=== PATIENT | male | born 1945 | race Caucasian/White ===

== ENCOUNTER 2017-11-01 22:42 | Emergency (ER) | payer MEDICARE ==
[~2017-11-01] VITALS: Ht 160 cm; Wt 70.0 kg
[2017-11-01] MEDS ORDERED: FAMOTIDINE 20MG TABLET PO ONE (23:45)
[2017-11-01] MEDS ORDERED: NITROGLYCERIN 0.4MG TABLET SL SL ONE (23:45)
[2017-11-01] MEDS ORDERED: ASPIRIN 325MG TABLET PO ONE (23:45)
[2017-11-02 00:16] LABS: BASOPHILS % 0.5 % (0.0-2.0); EOSINOPHILS % 0.1 % (0.0-5.0); HEMOGLOBIN. 14.9 g/dL (14.0-18.0); LYMPHOCYTES % 31.5 % (20.0-50.0); MEAN CORPUSCULAR HEMOGLOBIN 32.8 pg (28.0-32.0); MEAN CORPUSCULAR VOLUME 92.5 fL (80.0-94.0); MEAN PLATELET VOLUME 7.2 fl (7.4-10.4); MONOCYTES % 8.8 % (2.0-8.0); NEUTROPHILS % 59.1 % (40.0-76.0); PLATELET 236 x1000/uL (130-400); RED BLOOD CELL COUNT 4.54 mill/uL (4.7-6.1); RED CELL DISTRIBUTION WIDTH 13.3 % (11.6-14.6)
[2017-11-02 00:25] LABS: PROTHROMBIN TIME 10.5 sec (9.4-11.6)
[2017-11-02 00:28] LABS: CHLORIDE 98 mEq/L (98-107)
[2017-11-02] MEDS ORDERED: FAMOTIDINE 20MG TABLET PO NR (02:00)
[2017-11-02] MEDS ORDERED: ONDANSETRON HCL 4MG/2ML VIAL IV ONE (03:45)
[2017-11-02 04:53] VITALS: BP 141/82
== END 2017-11-02 05:47 | disposition home or self-care (01) ==
LOC: ER 22:42
DX: F10.129 Alcohol abuse with intoxication, unspecified (principal); R06.02 Shortness of breath; J45.909 Unspecified asthma, uncomplicated; F32.9 Major depressive disorder, single episode, unspecified; Z79.82 Long term (current) use of aspirin
CPT/HCPCS: 36415; 71045; 80053; 83880; 84484; 85025; 85610; 93005; 96374; 99285; G0482; J2405

== ENCOUNTER 2018-02-13 14:20 | Emergency (ER) | payer MEDICARE ==
[~2018-02-13] VITALS: Ht 157.5 cm; Wt 67.0 kg
[2018-02-13] MEDS ORDERED: SODIUM CHLORIDE 0.9% 1,000 ML IV ONE (15:22)
[2018-02-13 15:39] LABS: CHLORIDE 108 mEq/L (98-107)
[2018-02-13 15:40] LABS: BASOPHILS % 0.6 % (0.0-2.0); EOSINOPHILS % 2.2 % (0.0-5.0); HEMATOCRIT. 38.3 % (42.0-52.0); HEMOGLOBIN. 13.1 g/dL (14.0-18.0); LYMPHOCYTES % 38.2 % (20.0-50.0); MEAN CORPUSCULAR HEMOGLOBIN 33.2 pg (28.0-32.0); MEAN CORPUSCULAR VOLUME 97.1 fL (80.0-94.0); MONOCYTES % 11.3 % (2.0-8.0); NEUTROPHILS % 47.7 % (40.0-76.0); PLATELET 170 x1000/uL (130-400); PROTHROMBIN TIME 10.4 sec (9.4-11.6); RED BLOOD CELL COUNT 3.95 mill/uL (4.7-6.1); RED CELL DISTRIBUTION WIDTH 13.3 % (11.6-14.6)
[2018-02-13 15:42] LABS: CLARITY URINE CLEAR (CLEAR); COLOR URINE DARK YELLOW (YELLOW); KETONES URINE TRACE (NEGATIVE); LEUKOCYTE ESTERASE URINE NEGATIVE (NEGATIVE); NITRITE URINE NEGATIVE (NEGATIVE); OCCULT BLOOD URINE TRACE (NEGATIVE); PH URINE 5.5 (4.5-8.0); PROTEIN URINE NEGATIVE (NEGATIVE); SPECIFIC GRAVITY URINE 1.025 (1.005-1.030)
[2018-02-13 17:55] VITALS: BP 120/89
== END 2018-02-13 18:59 | disposition home or self-care (01) ==
LOC: ER 14:55
DX: R42 Dizziness and giddiness (principal); E03.9 Hypothyroidism, unspecified; J45.909 Unspecified asthma, uncomplicated; I10 Essential (primary) hypertension
CPT/HCPCS: 36415; 71045; 80053; 81003; 84443; 85025; 85610; 93005; 96360; 96361; 99285; J7030

== ENCOUNTER 2020-04-08 15:56 | Inpatient (IN) | payer MEDICARE ==
[~2020-04-08] VITALS: Ht 160 cm; Wt 67.6 kg
[2020-04-08 18:55] LABS: BASOPHILS % 0.5 % (0.0-2.0); EOSINOPHILS % 0.4 % (0.0-5.0); HEMATOCRIT. 42.1 % (42.0-52.0); HEMOGLOBIN. 14.6 g/dL (14.0-18.0); LYMPHOCYTES % 29.6 % (20.0-50.0); MEAN CORPUSCULAR HEMOGLOBIN 32.4 pg (28.0-32.0); MEAN CORPUSCULAR VOLUME 93.5 fL (80.0-94.0); MEAN PLATELET VOLUME 8.1 fl (7.4-10.4); MONOCYTES % 8.2 % (2.0-8.0); NEUTROPHILS % 61.3 % (40.0-76.0); PLATELET 159 x1000/uL (130-400); RED BLOOD CELL COUNT 4.51 mill/uL (4.7-6.1); RED CELL DISTRIBUTION WIDTH 13.4 % (11.6-14.6)
[2020-04-08] MEDS ORDERED: ONDANSETRON HCL 4MG/2ML INJ IV ONE (19:00)
[2020-04-08] MEDS ORDERED: PANTOPRAZOLE SODIUM 40 MG/VIAL IV ONE (19:00)
[2020-04-08] MEDS ORDERED: SODIUM CHLORIDE 0.9% 1,000 ML IV ONE (19:00)
[2020-04-08 19:02] LABS: CHLORIDE 101 mEq/L (98-107)
[2020-04-08 19:06] LABS: ETHANOL BLOOD 78 mg/dL
[2020-04-08 19:11] LABS: CREATINE KINASE 411 IU/L (39-308)
[2020-04-09] VITALS (7 sets, daily range): BP systolic 117–164; BP diastolic 57–89
[2020-04-09] MEDS ORDERED: MORPHINE SULFATE 2 MG/ML CPJ (NOT FOR IM USE) IV PRN (01:00)
[2020-04-09] MEDS ORDERED: PROSOL IH (03:15)
[2020-04-09] MEDS ORDERED: BISM262T15 PO (03:15)
[2020-04-09] MEDS ORDERED: CLONIDINE 0.1MG TABLET PO PRN (04:30)
[2020-04-09] MEDS ORDERED: DIPHENHYDRAMINE 50MG/ML VIAL IM PRN (04:30)
[2020-04-09] MEDS: FOLIC ACID 1 MG, THIAMINE HCL 100 MG, MVI, ADULT NO.1 10 ML in DEXTROSE 5% WATER 1,000 ML IV SCH ×4 (04:40)
[2020-04-09] MEDS: CHLORDIAZEPOXIDE 25MG CAPSULE PO SCH ×3 (05:04→20:58)
[2020-04-09] MEDS: IPRATROPIUM/ALBUTEROL 0.5-3(2.5)MG/3ML NEB HHN SCH ×4 (08:51→21:23)
[2020-04-09] MEDS: METOPROLOL TARTRATE 25MG TABLET PO SCH ×2 (08:54→20:58)
[2020-04-09 08:59] LABS: CHLORIDE 104 mEq/L (98-107)
[2020-04-09] MEDS ORDERED: POTASSIUM CHLORIDE 20MEQ TABLET SR PO NR (09:45)
[2020-04-09 10:31] LABS: BASOPHILS % 0.7 % (0.0-2.0); HEMATOCRIT. 37.4 % (42.0-52.0); HEMOGLOBIN. 12.8 g/dL (14.0-18.0); LYMPHOCYTES % 25.8 % (20.0-50.0); MEAN CORPUSCULAR HEMOGLOBIN 32.3 pg (28.0-32.0); MEAN CORPUSCULAR VOLUME 93.9 fL (80.0-94.0); MEAN PLATELET VOLUME 8.9 fl (7.4-10.4); MONOCYTES % 7.8 % (2.0-8.0); NEUTROPHILS % 63.7 % (40.0-76.0); PLATELET 107 x1000/uL (130-400); RED BLOOD CELL COUNT 3.98 mill/uL (4.7-6.1); RED CELL DISTRIBUTION WIDTH 13.4 % (11.6-14.6)
[2020-04-09 10:32] LABS: T4 FREE 0.9 ng/dL (0.76-1.46)
[2020-04-09] MEDS: OMEPRAZOLE 20MG CAPSULE EXTENDED RELEASE PO SCH (10:47)
[2020-04-09] MEDS ORDERED: PNEUMOCOCCAL 23-VAL P-SAC VAC 0.5 ML IM ONE (12:00)
[2020-04-09] MEDS: LORAZEPAM 1MG TABLET PO PRN (21:52)
[2020-04-10] VITALS: BP 104/63
[2020-04-10] MEDS: IPRATROPIUM/ALBUTEROL 0.5-3(2.5)MG/3ML NEB HHN SCH ×4 (01:17→12:21)
[2020-04-10 05:00] VITALS: BP 122/73
[2020-04-10] MEDS: OMEPRAZOLE 20MG CAPSULE EXTENDED RELEASE PO SCH (05:45)
[2020-04-10] MEDS: CHLORDIAZEPOXIDE 25MG CAPSULE PO SCH ×2 (05:45→14:28)
[2020-04-10] MEDS ORDERED: LEVOTHYROXINE SODIUM 50MCG TABLET PO SCH (06:45)
[2020-04-10 06:49] LABS: BASOPHILS % 0.5 % (0.0-2.0); EOSINOPHILS % 1.9 % (0.0-5.0); HEMATOCRIT. 37.8 % (42.0-52.0); HEMOGLOBIN. 12.9 g/dL (14.0-18.0); LYMPHOCYTES % 27.3 % (20.0-50.0); MEAN CORPUSCULAR HEMOGLOBIN 32.9 pg (28.0-32.0); MEAN PLATELET VOLUME 8.9 fl (7.4-10.4); MONOCYTES % 6.3 % (2.0-8.0); PLATELET 92 x1000/uL (130-400); RED BLOOD CELL COUNT 3.93 mill/uL (4.7-6.1); RED CELL DISTRIBUTION WIDTH 13.7 % (11.6-14.6)
[2020-04-10 07:02] LABS: CHLORIDE 102 mEq/L (98-107)
[2020-04-10] MEDS: METOPROLOL TARTRATE 25MG TABLET PO SCH (09:13)
[2020-04-10] MEDS: FOLIC ACID 1 MG, THIAMINE HCL 100 MG, MVI, ADULT NO.1 10 ML in DEXTROSE 5% WATER 1,000 ML IV SCH ×4 (09:59)
[2020-04-10] MEDS ORDERED: POTASSIUM CHLORIDE 20MEQ TABLET SR PO NR ×2 (11:15→13:24)
[2020-04-10 12:00] VITALS: BP 128/68
[2020-04-10] MEDS ORDERED: LEVO50TA8 PO (12:56)
[2020-04-10] MEDS ORDERED: MULT-1116 MT (12:57)
[2020-04-10] MEDS ORDERED: FOLI-43 MT (12:57)
[2020-04-10] MEDS ORDERED: THIA50TA11 MT (12:57)
[2020-04-10] MEDS ORDERED: MAGNESIUM OXIDE 400MG TABLET PO SCH (13:24)
[2020-04-10] MEDS: LORAZEPAM 1MG TABLET PO PRN (13:45)
[2020-04-10 15:34] VITALS: BP 112/75
== END 2020-04-10 16:30 | disposition home or self-care (01) | DRG 392 ==
LOC: ER 15:56 → 5WST 22:03 → EDBEDREQ 22:14 → EDBEDREQTM 22:14 → ENRESERV 22:19
PROVIDERS: ADMIT Internal Medicine; ATTEND Internal Medicine
DX: K29.20 Alcoholic gastritis without bleeding (principal); E87.2 Acidosis; E03.9 Hypothyroidism, unspecified; K76.0 Fatty (change of) liver, not elsewhere classified; J45.909 Unspecified asthma, uncomplicated; I10 Essential (primary) hypertension; E87.6 Hypokalemia; K80.20 Calculus of gallbladder without cholecystitis without obstruction; F10.229 Alcohol dependence with intoxication, unspecified; I27.20 Pulmonary hypertension, unspecified; Y90.3 Blood alcohol level of 60-79 mg/100 ml; E05.90 Thyrotoxicosis, unspecified without thyrotoxic crisis or storm; Z71.41 Alcohol abuse counseling and surveillance of alcoholic; R74.0 Nonspecific elevation of levels of transaminase and lactic acid dehydrogenase [LDH]
CPT/HCPCS: 36415; 71045; 76705; 80048; 80053; 80061; 80307; 80320; 80329; 82140; 82550; 83036; 83605; 83735; 83880; 84439; 84443; 84484; 85025; 90732; 93005; 93306; 94640; 96374; 99285; C9113; J1200; J2405; J3411; J3490; J7030; J7070; G0480

== ENCOUNTER 2020-09-19 15:39 | Inpatient (IN) | payer MEDICARE ==
[~2020-09-19] VITALS: Ht 160 cm; Wt 61.2 kg
[~2020-09-19 15:39] MED LIST: BISM262T15 PO; FOLI-43 MT; LEVO50TA8 PO; MULT-1116 MT; PROSOL IH; THIA50TA12 MT
[2020-09-19] MEDS ORDERED: NITROGLYCERIN 0.4MG TABLET SL SL PRN (16:45)
[2020-09-19] MEDS ORDERED: ASPIRIN 81MG TABLET PO ONE (16:45)
[2020-09-19 16:52] LABS: EOSINOPHILS % 1.3 % (0.0-5.0); HEMATOCRIT. 36.4 % (42.0-52.0); LYMPHOCYTES % 36.5 % (20.0-50.0); MEAN CORPUSCULAR HEMOGLOBIN 29.6 pg (28.0-32.0); MEAN CORPUSCULAR VOLUME 89.4 fL (80.0-94.0); MEAN PLATELET VOLUME 7.2 fl (7.4-10.4); NEUTROPHILS % 51.2 % (40.0-76.0); PLATELET 354 x1000/uL (130-400); RED BLOOD CELL COUNT 4.07 mill/uL (4.7-6.1)
[2020-09-19 16:58] LABS: CHLORIDE 105 mEq/L (98-107)
[2020-09-19 17:03] LABS: D-DIMER 0.76 mg/L FEU (<0.50); PARTIAL THROMBOPLASTIN TIME 25.5 sec (23.4-31.0); PROTHROMBIN TIME 10.3 sec (9.6-11.0)
[2020-09-19] MEDS ORDERED: IOHEXOL 350 MG/ML 200ML INFUS..BTL IV ONE (20:02)
[2020-09-19 22:54] VITALS: BP 131/78
[2020-09-19] MEDS ORDERED: CLONIDINE 0.1MG TABLET PO PRN (23:30)
[2020-09-20] VITALS: BP 131/78
[2020-09-20] MEDS: ONDANSETRON HCL 4MG/2ML INJ IV PRN ×2 (00:05→18:06)
[2020-09-20] MEDS: HYDROCODONE/ACETAMINOPHEN 5/325MG TABLET PO PRN ×3 (00:05→18:02)
[2020-09-20] MEDS: ZOLPIDEM TARTRATE 5MG TABLET PO PRN (01:31)
[2020-09-20 04:00] VITALS: BP 107/58
[2020-09-20] MEDS: NITROGLYCERIN OINT 1GM/INCH UDPKT TD SCH ×3 (05:19→21:27)
[2020-09-20 06:58] LABS: CHLORIDE 106 mEq/L (98-107)
[2020-09-20 07:08] LABS: LDL CHOLESTEROL 68 mg/dL (5-100)
[2020-09-20 07:09] LABS: BASOPHILS % 1.2 % (0.0-2.0); EOSINOPHILS % 4.1 % (0.0-5.0); HEMATOCRIT. 34.8 % (42.0-52.0); HEMOGLOBIN. 11.4 g/dL (14.0-18.0); MEAN CORPUSCULAR HEMOGLOBIN 29.4 pg (28.0-32.0); MEAN CORPUSCULAR VOLUME 89.5 fL (80.0-94.0); MEAN PLATELET VOLUME 7.2 fl (7.4-10.4); NEUTROPHILS % 44.7 % (40.0-76.0); PLATELET 308 x1000/uL (130-400); RED BLOOD CELL COUNT 3.89 mill/uL (4.7-6.1); RED CELL DISTRIBUTION WIDTH 16.7 % (11.6-14.6)
[2020-09-20 07:12] LABS: HDL CHOLESTEROL 59 mg/dL (40-59)
[2020-09-20 08:00] VITALS: BP 131/80
[2020-09-20] MEDS: ENOXAPARIN 40MG/0.4ML SYR SUBCUT SCH (08:14)
[2020-09-20] MEDS: ASPIRIN 81MG TABLET PO SCH (08:17)
[2020-09-20] MEDS: METOPROLOL TARTRATE 50MG TABLET PO SCH ×2 (08:17→21:26)
[2020-09-20 12:00] VITALS: BP 106/64
[2020-09-20 20:00] VITALS: BP 122/67
[2020-09-20] MEDS: ACETAMINOPHEN 325MG TABLET PO PRN (21:27)
[2020-09-21] VITALS: BP 111/61
[2020-09-21] MEDS: ZOLPIDEM TARTRATE 5MG TABLET PO PRN ×2 (00:32→22:06)
[2020-09-21 04:00] VITALS: BP 116/58
[2020-09-21] MEDS: NITROGLYCERIN OINT 1GM/INCH UDPKT TD SCH ×3 (05:35→22:06)
[2020-09-21] MEDS: LEVOTHYROXINE SODIUM 50MCG TABLET PO SCH (05:44)
[2020-09-21 08:00] VITALS: BP 123/68
[2020-09-21] MEDS: ASPIRIN 81MG TABLET PO SCH (09:09)
[2020-09-21] MEDS: METOPROLOL TARTRATE 50MG TABLET PO SCH ×2 (09:10→20:32)
[2020-09-21] MEDS: ENOXAPARIN 40MG/0.4ML SYR SUBCUT SCH (09:11)
[2020-09-21 09:13] LABS: CHLORIDE 106 mEq/L (98-107)
[2020-09-21 09:18] LABS: GAMMA GLUTAMYL TRANSPEPTIDASE 82 IU/L (11-50)
[2020-09-21 09:21] LABS: TOTAL IRON BINDING CAPACITY 324 ug/dL (250-450)
[2020-09-21 09:49] LABS: BASOPHILS % 1.1 % (0.0-2.0); EOSINOPHILS % 3.3 % (0.0-5.0); HEMATOCRIT. 34.6 % (42.0-52.0); HEMOGLOBIN. 11.4 g/dL (14.0-18.0); MEAN CORPUSCULAR HEMOGLOBIN 29.4 pg (28.0-32.0); MEAN CORPUSCULAR VOLUME 89.3 fL (80.0-94.0); MEAN PLATELET VOLUME 7.3 fl (7.4-10.4); MONOCYTES % 9.2 % (2.0-8.0); NEUTROPHILS % 58.4 % (40.0-76.0); PLATELET 362 x1000/uL (130-400); RED BLOOD CELL COUNT 3.88 mill/uL (4.7-6.1); RED CELL DISTRIBUTION WIDTH 16.7 % (11.6-14.6)
[2020-09-21 09:50] LABS: FOLIC ACID (FOLATE) SERUM 8.7 ng/mL (>5.38)
[2020-09-21 12:00] VITALS: BP 127/50
[2020-09-21] MEDS: ASCORBIC ACID 500 MG TABLET PO SCH (12:38)
[2020-09-21] MEDS: HYDROCODONE/ACETAMINOPHEN 5/325MG TABLET PO PRN ×2 (14:15→18:46)
[2020-09-21 16:00] VITALS: BP 117/67
[2020-09-21] MEDS: FERROUS SULFATE 325MG TABLET PO SCH (17:27)
[2020-09-21 20:00] VITALS: BP 111/62
[2020-09-21] MEDS: ACETAMINOPHEN 325MG TABLET PO PRN (22:06)
[2020-09-22] VITALS: BP 117/63
[2020-09-22 04:00] VITALS: BP 120/71
[2020-09-22] MEDS: NITROGLYCERIN OINT 1GM/INCH UDPKT TD SCH ×3 (05:43→21:08)
[2020-09-22] MEDS: LEVOTHYROXINE SODIUM 50MCG TABLET PO SCH (06:45)
[2020-09-22] MEDS: FERROUS SULFATE 325MG TABLET PO SCH ×2 (06:49→17:25)
[2020-09-22 07:08] LABS: PROTHROMBIN TIME 10.3 sec (9.6-11.0)
[2020-09-22 07:24] LABS: CHLORIDE 107 mEq/L (98-107)
[2020-09-22 07:33] LABS: BASOPHILS % 1.2 % (0.0-2.0); HEMATOCRIT. 36.2 % (42.0-52.0); HEMOGLOBIN. 12.1 g/dL (14.0-18.0); LYMPHOCYTES % 34.3 % (20.0-50.0); MEAN CORPUSCULAR HEMOGLOBIN 29.6 pg (28.0-32.0); MEAN CORPUSCULAR VOLUME 88.8 fL (80.0-94.0); MEAN PLATELET VOLUME 7.2 fl (7.4-10.4); MONOCYTES % 8.3 % (2.0-8.0); NEUTROPHILS % 52.2 % (40.0-76.0); PLATELET 418 x1000/uL (130-400); RED BLOOD CELL COUNT 4.08 mill/uL (4.7-6.1); RED CELL DISTRIBUTION WIDTH 16.5 % (11.6-14.6)
[2020-09-22 08:01] VITALS: BP 136/90
[2020-09-22] MEDS: ASCORBIC ACID 500 MG TABLET PO SCH (08:20)
[2020-09-22] MEDS: ASPIRIN 81MG TABLET PO SCH (08:20)
[2020-09-22] MEDS: ENOXAPARIN 40MG/0.4ML SYR SUBCUT SCH (08:20)
[2020-09-22] MEDS: ONDANSETRON HCL 4MG/2ML INJ IV PRN (08:20)
[2020-09-22] MEDS: METOPROLOL TARTRATE 50MG TABLET PO SCH ×2 (08:21→21:07)
[2020-09-22] MEDS ORDERED: DIPHENHYDRAMINE 50MG/ML VIAL ONE (11:46)
[2020-09-22] MEDS ORDERED: FENTANYL CITRATE/PF 50MCG/ML 2ML VIAL ONE (11:46)
[2020-09-22] MEDS ORDERED: MIDAZOLAM HCL 2 MG/2 ML VIAL ONE (11:48)
[2020-09-22] MEDS: ACETAMINOPHEN 325MG TABLET PO PRN ×2 (14:44→21:08)
[2020-09-22 16:00] VITALS: BP 101/56
[2020-09-22 20:00] VITALS: BP 115/70
[2020-09-23] VITALS: BP 103/47
[2020-09-23] MEDS: ZOLPIDEM TARTRATE 5MG TABLET PO PRN (00:37)
[2020-09-23 04:00] VITALS: BP 132/70
[2020-09-23] MEDS: NITROGLYCERIN OINT 1GM/INCH UDPKT TD SCH ×2 (05:26→14:02)
[2020-09-23] MEDS: LEVOTHYROXINE SODIUM 50MCG TABLET PO SCH (05:56)
[2020-09-23 06:23] LABS: BASOPHILS % 1.5 % (0.0-2.0); EOSINOPHILS % 3.3 % (0.0-5.0); HEMATOCRIT. 34.7 % (42.0-52.0); HEMOGLOBIN. 11.6 g/dL (14.0-18.0); LYMPHOCYTES % 28.2 % (20.0-50.0); MEAN CORPUSCULAR HEMOGLOBIN 29.6 pg (28.0-32.0); MEAN CORPUSCULAR VOLUME 88.5 fL (80.0-94.0); MEAN PLATELET VOLUME 7.2 fl (7.4-10.4); MONOCYTES % 8.5 % (2.0-8.0); NEUTROPHILS % 58.5 % (40.0-76.0); PLATELET 389 x1000/uL (130-400); RED BLOOD CELL COUNT 3.92 mill/uL (4.7-6.1); RED CELL DISTRIBUTION WIDTH 16.5 % (11.6-14.6)
[2020-09-23 06:25] LABS: CHLORIDE 107 mEq/L (98-107)
[2020-09-23 08:00] VITALS: BP 134/72
[2020-09-23] MEDS: FERROUS SULFATE 325MG TABLET PO SCH ×2 (08:07→17:15)
[2020-09-23] MEDS: ENOXAPARIN 40MG/0.4ML SYR SUBCUT SCH (08:14)
[2020-09-23] MEDS: ASPIRIN 81MG TABLET PO SCH (08:15)
[2020-09-23] MEDS: METOPROLOL TARTRATE 50MG TABLET PO SCH (08:15)
[2020-09-23] MEDS: ASCORBIC ACID 500 MG TABLET PO SCH (08:15)
[2020-09-23 12:00] VITALS: BP 127/43
[2020-09-23] MEDS ORDERED: FERR325T23 PO (12:24)
[2020-09-23] MEDS ORDERED: LEVO50TA8 PO (12:24)
[2020-09-23] MEDS ORDERED: ASCO500T20 PO (12:24)
[2020-09-23] MEDS ORDERED: DOCU250C14 MT (12:24)
[2020-09-23] MEDS ORDERED: METO-539 PO (12:24)
[2020-09-23 13:41] VITALS: BP 127/43
[2020-09-23] MEDS: ACETAMINOPHEN 325MG TABLET PO PRN (14:02)
[2020-09-23 16:00] VITALS: BP 119/67
== END 2020-09-23 18:30 | disposition home or self-care (01) | DRG 375 ==
LOC: ER 15:39 → 5WST 20:03 → EDBEDREQ 20:12 → ENRESERV 21:21
PROVIDERS: ADMIT Internal Medicine; ATTEND Internal Medicine
PROC: 0DB58ZX Excision of Esophagus, Via Natural or Artificial Opening Endoscopic, Diagnostic (ICD-10-PCS; principal; 2020-09-22)
PROC: 0DB68ZX Excision of Stomach, Via Natural or Artificial Opening Endoscopic, Diagnostic (ICD-10-PCS; 2020-09-22)
DX: C15.9 Malignant neoplasm of esophagus, unspecified (principal); E44.1 Mild protein-calorie malnutrition; K20.90 Esophagitis, unspecified without bleeding; K22.2 Esophageal obstruction; K44.9 Diaphragmatic hernia without obstruction or gangrene; D64.9 Anemia, unspecified; E03.9 Hypothyroidism, unspecified; I25.10 Atherosclerotic heart disease of native coronary artery without angina pectoris; K74.60 Unspecified cirrhosis of liver; K80.20 Calculus of gallbladder without cholecystitis without obstruction; D50.9 Iron deficiency anemia, unspecified; I10 Essential (primary) hypertension; I27.20 Pulmonary hypertension, unspecified; R13.10 Dysphagia, unspecified; J44.9 Chronic obstructive pulmonary disease, unspecified; K29.70 Gastritis, unspecified, without bleeding; Z20.822 Contact with and (suspected) exposure to COVID-19; F10.11 Alcohol abuse, in remission; Z68.23 Body mass index [BMI] 23.0-23.9, adult; Z79.899 Other long term (current) drug therapy
CPT/HCPCS: 36415; 71045; 71275; 80048; 80053; 80061; 80076; 82270; 82378; 82607; 82728; 82746; 82977; 83540; 83550; 83880; 84436; 84443; 84484; 85025; 85379; 87426; 88305; 88312; 88313; 92610; 93005; 93306; 99285; J1200; J1650; J2250; J2405; J3010; Q9967